=== PATIENT | male | born 1950 | race Two or more races ===

== ENCOUNTER 2023-03-05 12:05 | Outpatient (OUT) | payer MEDICARE, SELFPAY ==
--- NOTE | 2023-03-05 12:15 | ECG_ITS ---
[facility] Test Date: 2023-03-05 Pat Name: TENA GALINDO Department: Room: - Gender: Male [employer]: : 1950 Requested By: TEJAS ARZOLA Order Number: [id number] Reading MD: MYRON SANCHEZ Measurements Intervals [place] Rate: 55 P: 19 [place]: 187 QRS: -40 QRSD: 101 T: 132 QT: 438 QTc: 421 Interpretive Statements SINUS BRADYCARDIAA Remote inferior wall myocardial infarction Anterolateral ST/T wave changes, can't exclude myocardial ischemia ACUTE AR No previous ECG available for comparison Electronically Signed On 03-06-2023 7:12:11 EDT by MYRON SANCHEZ
--- NOTE | 2023-03-05 12:16 | XR_ITS ---
The [address] [address] Patient Name: TENA GALINDO MRN: [id number] date: 1950 Sex: M Assigned Patient Location: [facility] Current Patient Location: [facility] Accession/Order Number: [id number] Exam Date: 03/05/2023 12:21 Report Date: 03/05/2023 13:58 At the request of: TEJAS ARZOLA Procedure: XR chest 2V EXAM: [place]illian x-ray HISTORY: . PRE OP EXAM . COMPARISON: None. TECHNIQUE: Frontal and lateral chest FINDINGS: Heart and vascularity are unremarkable. Lungs are free of focal infiltrates. There is eventration of the right hemidiaphragm. Spondylosis of the spine is noted. Atherosclerotic changes of the thoracic aorta are noted. XR/XR chest 2V IMPRESSION: No acute heart or lung disease identified. Electronically authenticated by: TARAH DOS SANTOS Date: 03/05/2023 13:58
--- NOTE | 2023-03-05 12:58 | PM.PRESUREVA ---
History of Present Illness History of Present Illness Chief complaint: bph with obstruction Narrative: Patient presents for preadmission testing accompanied by his . The patient has a history of incomplete bladder emptying, frequency with urination, urgency with urination, nocturia, and post void dribbling. The patient denies abdominal pain, nausea, vomiting, fever, chest pain, dizziness, or syncope. The patient has a significant cardiac history, congestive heart failure, and he normally has dyspnea with exertion which is not new for him. Review of Systems ROS Narrative REVIEW OF SYSTEMS: Negative except as stated in HPI, ten or more systems reviewed. Constitutional: No fever , chills, weakness ENT: No sore throat or epistaxis Cardiovascular: No edema, chest pain, or palpitations Respiratory: No shortness of breath, cough, or wheezing Musculoskeletal: No joint pain or swelling Gastrointestinal: No abdominal pain, constipation, diarrhea, or vomiting Neurological: No numbness, tingling, weakness, or headache Psychiatric: No mood changes PFSH PFSH Medical History (Updated 03/05/23 @ 12:42 by Shanita Poon NP) Surgical History (Updated 03/05/23 @ 12:42 by Shanita Poon NP) Family History (Updated 03/05/23 @ 12:42 by Shanita Poon NP) Other Family history of diabetes mellitus Family history of heart disease Family history of myocardial infarction Social History (Updated 03/05/23 @ 12:37 by Shanita Poon NP) Within the past year, how often did you have a drink containing alcohol: monthly or less Smoking status: Former smoker Highest level of school completed/degree received: high school graduate Meds Home Medications and Allergies Allergies Allergy/AdvReac Type Severity Reaction Status Date / Time bee venom protein (honey bee) Allergy Anaphylaxis Verified 03/05/23 12:36 Penicillins Allergy Unknown Verified 03/05/23 12:36 Exam Narrative Exam Narrative: Constitutional: Awake, alert, comfortable, well-appearing, nontoxic, interactive, vital signs as charted Head: Normocephalic, atraumatic Neck: Supple, normal appearance, normal range of motion, no meningeal signs, no lymphadenopathy Respiratory: No respiratory distress, breath sounds clear Cardiovascular: Regular rate and rhythm, strong and regular heart tones Abdomen: Nontender, normal bowel sounds, soft, no CVA tenderness Musculoskeletal: Normal gait, no swelling or edema Skin: No rashes or induration, no lesions, only visible skin inspected Neuro: No neurological deficits, normal sensation Psychiatric: Oriented ?3, normal affect Assessment and Plan Assessment and Plan (1) Anticoagulated: (2) Benign prostatic hyperplasia with urinary obstruction: Plan Cystoscopy/transurethral resection of the prostate scheduled with Dr. Martin 03/14/2023. Patient had an abnormal EKG today in preadmission testing. He denies chest pain, dizziness, or syncope. He has no shortness of breath at rest. He normally has dyspnea on exertion. Abnormal EKG reported to Dr. Martin office, Dr. Hebert's office, and Dr. Knutson's office by voicemail and fax, no one was available at any of the office is to take my call. Anesthesia was not present at this time. I discussed EKG results with the patient and his . They declined an Emergency Room visit at this time. I directed the patient and to go to the Emergency Room or call 911 for any change in condition or concerns. Patient and verbalize understanding.
[2023-03-05 13:37] LABS: Basophils Percent Auto 0.6 % (0.2-2.0); Eosinophils Absolute Auto 0.2 10^3/uL (0.0-0.7); Eosinophils Percent Auto 2.5 % (0.9-7.0); Hematocrit 49.4 % (42.0-54.0); Hemoglobin 16.4 g/dL (14.0-18.0); Immature Granulocytes Abs Auto 0.02 10^3/uL (0.00-0.03); Immature Granulocytes Pct Auto 0.3 % (0.0-0.5); Lymphocytes Absolute Auto 1.4 10^3/uL (1.2-3.8); Lymphocytes Percent Auto 21.3 % (20.5-60.0); Mean Corpuscular HGB Conc 33.2 g/dL (29.9-35.2); Mean Corpuscular Hemoglobin 32.5 pg (25.9-34.0); Monocytes Absolute Auto 0.5 10^3/uL (0.3-0.8); Neutrophils Absolute Auto 4.3 10^3/uL (1.4-6.5); Neutrophils Percent Auto 67.3 % (43.0-75.0); Platelet Count 154 10^3/uL (150-450); Red Blood Count 5.04 10^6/uL (4.70-6.10); Red Cell Distribution Width 12.8 % (11.0-15.0); White Blood Count 6.4 10^3/uL (4.0-11.0)
[2023-03-05 13:50] LABS: BUN Creatinine Ratio 14.4; Calcium 8.9 mg/dL (8.5-10.1); Carbon Dioxide 25.9 mmol/L (21.0-32.0); Chloride 106 mmol/L (98-107); Estimated GFR (African America >60 (>=60); Estimated GFR (Non-African Ame >60 (>=60); Glucose 156 mg/dL (74-106); Potassium 3.9 mmol/L (3.5-5.1); Sodium 141 mmol/L (136-145)
[2023-03-05 14:10] LABS: Prostate Specific Antigen Scrn 1.92 ng/mL (<=4.00)
[2023-03-05 14:11] LABS: INR 1.07; Prothrombin Time 11.3 sec (9.0-11.6)
== END 2023-03-05 12:06 | disposition home or self-care (01) ==
LOC: PST 12:11
PROVIDERS: PCP Family Medicine; Visit Provider Urology
DX: Z01.810 Encounter for preprocedural cardiovascular examination (principal); Z01.812 Encounter for preprocedural laboratory examination; N40.1 Benign prostatic hyperplasia with lower urinary tract symptoms; E11.9 Type 2 diabetes mellitus without complications; Z79.01 Long term (current) use of anticoagulants; I25.10 Atherosclerotic heart disease of native coronary artery without angina pectoris; I50.9 Heart failure, unspecified; I25.2 Old myocardial infarction; I11.0 Hypertensive heart disease with heart failure; Z12.5 Encounter for screening for malignant neoplasm of prostate
CPT/HCPCS: 36415; 71046; 80048; 85025; 85610; 85730; 93005; G0103; G0463